=== PATIENT | male | born 1960 | race Caucasian/White ===

== ENCOUNTER 2016-05-28 17:21 | Inpatient (IN) | payer BC ==
[~2016-05-28] VITALS: Ht 177.8 cm; Wt 74.8 kg
[~2016-05-28 17:21] MED LIST: NO HOME MEDICATIONS
[2016-05-28 18:07] LABS: BASO % 0.2 % (0.0-2.0); GRAN # 13.6 (1.4-6.5); HEMATOCRIT 41.2 % (42.0-52.0); HEMOGLOBIN 14.9 g/dl (13.5-18.0); LYMPH # 0.7 (1.2-3.4); LYMPH % 4.3 % (20.0-51.0); MEAN CELL VOLUME 89 fl (80.0-100.0); MEAN CORPUSCULAR HEMOGLOBIN 32 pg (27.0-31.0); MEAN CORPUSCULAR HGB CONC 36 g/dl (33.0-37.0); MEAN PLATELET VOLUME 9.5 fl (7.4-10.4); MONO # 2.2 (0.1-0.6); MONO % 13.1 % (1.7-9.3); PLATELET COUNT 329 K/mm3 (130-400); RED BLOOD COUNT 4.63 M/mm3 (4.20-5.60); REDCELL DISTRIBUTION WIDTH-CV 12.3 % (11.5-14.5); WHITE BLOOD COUNT 16.6 K/mm3 (4.8-10.8)
[2016-05-28 18:53] LABS: ALBUMIN 3.8 gm/dL (3.5-5.0); BILIRUBIN,TOTAL 5.7 mg/dL (0.0-1.0); CALCIUM 8.8 mg/dL (8.4-10.2); CREATININE, serum 0.94 mg/dL (0.66-1.25); POTASSIUM 3.4 mmol/L (3.4-5.0); TOTAL PROTEIN 7.6 gm/dL (6.4-8.2)
[2016-05-28 21:41] VITALS: BP 131/86; PULSE 92; TEMP 98.3
[2016-05-28 23:06] LABS: PH 5 (5-8); SQUAMOUS EPITHELIAL None Seen /hpf; URINE APPEARANCE Hazy; URINE BACTERIA None Seen /hpf; URINE BILIRUBIN Positive (NEGATIVE); URINE BLOOD 1+ (NEGATIVE); URINE COLOR Amber; URINE GLUCOSE Negative (NEGATIVE); URINE KETONE 2+ (NEGATIVE); URINE RBC 0-2 /hpf; URINE UROBILINOGEN >=4.0 mg/dL (NEGATIVE)
[2016-05-29 00:39] VITALS: BP 121/80; PULSE 75; TEMP 98.4
[2016-05-29 04:59] VITALS: BP 108/87; PULSE 98; TEMP 98.2
[2016-05-29 07:53] LABS: BASO % 0.3 % (0.0-2.0); EOS % 0.1 % (0-4.0); GRAN # 9.7 (1.4-6.5); GRAN % 76.2 % (42.2-75.2); HEMATOCRIT 37.7 % (42.0-52.0); HEMOGLOBIN 13.5 g/dl (13.5-18.0); LYMPH # 1.4 (1.2-3.4); LYMPH % 11.2 % (20.0-51.0); MEAN CELL VOLUME 90 fl (80.0-100.0); MEAN CORPUSCULAR HEMOGLOBIN 32 pg (27.0-31.0); MEAN CORPUSCULAR HGB CONC 36 g/dl (33.0-37.0); MEAN PLATELET VOLUME 9.5 fl (7.4-10.4); MONO # 1.5 (0.1-0.6); MONO % 11.8 % (1.7-9.3); PLATELET COUNT 326 K/mm3 (130-400); RED BLOOD COUNT 4.19 M/mm3 (4.20-5.60); REDCELL DISTRIBUTION WIDTH-CV 12.3 % (11.5-14.5); WHITE BLOOD COUNT 12.8 K/mm3 (4.8-10.8)
[2016-05-29 08:07] LABS: CALCIUM 8.9 mg/dL (8.4-10.2); CREATININE, serum 0.85 mg/dL (0.66-1.25); POTASSIUM 3.4 mmol/L (3.4-5.0)
[2016-05-29 08:35] VITALS: BP 130/84; PULSE 77; TEMP 97.8
[2016-05-29 11:57] VITALS: BP 133/85; PULSE 77; TEMP 98
[2016-05-29 16:34] VITALS: BP 133/84; PULSE 86; TEMP 97.7
[2016-05-29 21:14] VITALS: BP 131/73; PULSE 89; TEMP 97.9
[2016-05-30 00:19] VITALS: BP 130/90; PULSE 75; TEMP 97.8
[2016-05-30 04:59] VITALS: BP 132/90; PULSE 86; TEMP 98
[2016-05-30 07:44] LABS: MEAN CELL VOLUME 91 fl (80.0-100.0); MEAN CORPUSCULAR HGB CONC 36 g/dl (33.0-37.0); MEAN PLATELET VOLUME 9.7 fl (7.4-10.4); PLATELET COUNT 336 K/mm3 (130-400); RED BLOOD COUNT 3.66 M/mm3 (4.20-5.60); REDCELL DISTRIBUTION WIDTH-CV 12.5 % (11.5-14.5); WHITE BLOOD COUNT 8.6 K/mm3 (4.8-10.8)
[2016-05-30 07:53] LABS: HEMATOCRIT 33.4 % (42.0-52.0); HEMOGLOBIN 11.9 g/dl (13.5-18.0); MEAN CORPUSCULAR HEMOGLOBIN 33 pg (27.0-31.0)
[2016-05-30 07:54] LABS: ADD PATHOLOGY DIFF REVIEW NO
[2016-05-30 08:08] LABS: BAND 10 % (0-10); NEUTROPHILS 85 % (42.0-75.2); PLATELET ESTIMATE NORMAL (NORMAL); TOTAL CELLS COUNTED 100
[2016-05-30 08:19] LABS: ADJUSTED CALCIUM 9.8 mg/dL (8.4-10.2); ALBUMIN 3.1 gm/dL (3.5-5.0); CALCIUM 9.1 mg/dL (8.4-10.2); CREATININE, serum 0.75 mg/dL (0.66-1.25); POTASSIUM 3.6 mmol/L (3.4-5.0); TOTAL PROTEIN 6.6 gm/dL (6.4-8.2)
[2016-05-30 08:40] VITALS: BP 93/56; PULSE 69; TEMP 98.2
[2016-05-30] MEDS ORDERED: FLONASE NASAL S16 GM NS (11:11)
[2016-05-30] MEDS ORDERED: PREDNISONE20 MG PO (11:12)
[2016-05-30] MEDS ORDERED: LEVAQUIN 750MG750 M1 PO (11:12)
[2016-05-30] MEDS ORDERED: CLARINEX-D12 HO1 T12 PO (11:13)
[2016-05-30] MEDS ORDERED: 00186-0370-20 IH (11:13)
[2016-05-31 22:12] LABS: HEPATITIS B SURFACE AB-QL Negative (())
== END 2016-05-30 12:50 | disposition home or self-care (01) | DRG 871 ==
LOC: COL.ER 17:21 → MEDICAL 19:22
PROVIDERS: Emergency Medicine; Internal Medicine; Nurse Practitioner Family
DX: A41.9 Sepsis, unspecified organism (principal); J18.9 Pneumonia, unspecified organism; E43 Unspecified severe protein-calorie malnutrition; H65.192 Other acute nonsuppurative otitis media, left ear; K52.9 Noninfective gastroenteritis and colitis, unspecified
CPT/HCPCS: 99222-AI; 99239; A9284; J0696; J1650; J1956; J2930; J7030